=== PATIENT | female | born 1975 | race Caucasian/White ===

== ENCOUNTER 2021-05-03 13:05 | Outpatient (CLI) | payer SELFPAY ==
--- NOTE | 2021-05-03 13:12 | ECHOD_ITS ---
Reason For Study: Palps, Hx of DCM Procedure This was a 2D Doppler, Color Flow transthoracic echocardiogram. Exam performed in department. Left Ventricle Normal LV size. Left ventricular systolic function is normal. The estimated ejection fraction is 55 %. No regional wall motion abnormalities noted. Right Ventricle Normal RV size. Normal systolic function. Atria Normal left atrium. Normal right atrium. Mitral Valve Normal mitral valve. Tricuspid Valve Normal tricuspid valve. Mild tricuspid valve insufficiency. Aortic Valve Normal aortic valve. Trisinus/trileaflet aortic valve. Pulmonic Valve Normal pulmonic valve. Great Vessels Normal aortic root. The pulmonary artery is normal size. Normal inferior vena cava. Pericardium/Pleural No pericardial effusion. MMode/2D Measurements & Calculations LVIDd: 4.6 cm IVSd: 0.81 cm Ao root diam: 2.5 cm LVIDs: 3.0 cm LVPWd: 0.68 cm RVDd: 2.4 cm FS: 34.0 % LAV(MOD-bp): 21.2 ml LVAd ap4: 23.7 cm2 LVAd ap2: 23.5 cm2 LAV(MOD-bp) Indexed: 14.8 ml/m2 LVLd ap4: 7.0 cm LVLd ap2: 7.0 cm LAV(MOD-sp2): 21.3 ml EDV(MOD-sp4): 67.3 ml EDV(MOD-sp2): 66.5 ml LAV(MOD-sp4): 17.7 ml EDV(sp4-el): 68.0 ml EDV(sp2-el): 66.7 ml LVAs ap4: 14.2 cm2 LVAs ap2: 13.9 cm2 LVLs ap4: 6.0 cm LVLs ap2: 6.0 cm ESV(MOD-sp4): 28.3 ml ESV(MOD-sp2): 27.5 ml ESV(sp4-el): 28.7 ml ESV(sp2-el): 27.5 ml EF(MOD-sp4): 57.9 % EF(MOD-sp2): 58.7 % EF(sp4-el): 57.8 % SV(MOD-sp4): 39.0 ml SV(MOD-sp2): 39.1 ml SV(sp4-el): 39.3 ml LA dimension(2D): 2.6 cm LA A4 area: 9.9 cm2 RA A4 area: 6.5 cm2 Doppler Measurements & Calculations MV E max thanh: 65.4 cm/sec Lat Peak E' Thanh: 11.3 cm/sec Med Peak E' Thanh: 8.0 cm/sec MV A max thanh: 59.9 cm/sec E/E' lat: 5.8 E/E' med: 8.2 MV E/A: 1.1 Ao V2 max: 108.8 cm/sec LV V1 max: 91.8 cm/sec PA V2 max: 75.3 cm/sec Ao max P.7 mmHg LV V1 max P.4 mmHg TR max thanh: 187.9 cm/sec TR max P.1 mmHg ECHO/Echo Complete Interpretation Summary Normal LV size. Left ventricular systolic function is normal. The estimated ejection fraction is 55 %. Mild tricuspid valve insufficiency. Structurally normal valves. Ordering Physician: Derek Mejia Referring Physician: Derek Mejia Performed By: Rita Delatorre RDCS
== END 2021-05-03 23:59 | disposition home or self-care (01) ==
PROVIDERS: Referring Provider Family Medicine; Visit Provider Family Medicine
DX: Z86.79 Personal history of other diseases of the circulatory system (principal)
CPT/HCPCS: 93306